=== PATIENT | female | born 1950 | race American Indian/Alaskan Native ===

== ENCOUNTER 2016-11-03 11:17 | Outpatient (CLI) | payer MEDICARE ==
--- NOTE | 2016-11-03 11:52 | Ultrasound Report ---
ULTRASOUND RIGHT NECK: 11/03/16 CLINICAL: A palpable lump in the right neck. The patient states that it has been present for several years. FINDINGS: Ultrasound of the right neck was performed in the area of a palpable lump approximately 7 cm inferior to the right earlobe. A single lymph node with central fat and benign morphology corresponds to the palpable lump. It measures 1.5 x 0.5 x 0.5 cm IMPRESSION: A palpable right cervical lymph node with benign sonographic features.
== END 2016-11-03 11:18 | disposition home or self-care (01) ==
LOC: SPVWC 11:17
PROVIDERS: ATTEND Internal Medicine
DX: M54.2 Cervicalgia (principal); R22.1 Localized swelling, mass and lump, neck
CPT/HCPCS: 76536

== ENCOUNTER 2018-11-20 09:22 | Outpatient (CLI) | payer MEDICARE ==
--- NOTE | 2018-11-20 10:39 | Ultrasound Report ---
TRANSVAGINAL and TRANSABDOMINAL ULTRASOUND HISTORY: Intermittent right lower quadrant pelvic pain. Hysterectomy in 1984. The left ovary has been removed. COMPARISON: None. TECHNIQUE: Routine transabdominal and transvaginal pelvic ultrasound performed. FINDINGS: Uterus: Surgically absent. Endometrium: Surgically absent. Right Ovary: Scattered calcifications within the ovary. The ovary measures 3.9 x 1.7 x 3.0 cm. Left Ovary: Surgically absent. Additional findings: No free pelvic fluid. IMPRESSION A relatively large right ovary given the patient's age. Consider additional pelvic imaging with CT an d/or MRI. Signer Name: Boris Diaz MD Signed: 11/20/2018 10:34 AM Workstation Name: [id number]
== END 2018-11-20 09:23 | disposition home or self-care (01) ==
LOC: SPVIMAG 09:22 → SPVWC 09:22 → SPVIMAG 09:23
PROVIDERS: ATTEND Internal Medicine
DX: N83.8 Other noninflammatory disorders of ovary, fallopian tube and broad ligament (principal)
CPT/HCPCS: 76830; 76856